=== PATIENT | female | born 1990 | race American Indian/Alaskan Native ===

== ENCOUNTER 2021-12-21 20:55 | Emergency (ER) | payer SELFPAY ==
[2021-12-21 21:02] VITALS: BP 115/72
[2021-12-21] MEDS ORDERED: IBUPROFEN 800 MG TAB PO ONE (22:39)
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
== END 2021-12-22 07:00 | disposition home or self-care (01) ==
LOC: ED 20:55
DX: S16.1XXA Strain of muscle, fascia and tendon at neck level, initial encounter (principal); S39.012A Strain of muscle, fascia and tendon of lower back, initial encounter; V89.2XXA Person injured in unspecified motor-vehicle accident, traffic, initial encounter; Y93.89 Activity, other specified; Y92.89 Other specified places as the place of occurrence of the external cause; Y99.8 Other external cause status
CPT/HCPCS: 99281